=== PATIENT | male | born 2000 | race Caucasian/White ===

== ENCOUNTER 2022-03-15 18:27 | Emergency (ER) | payer OTHER ==
[2022-03-15] MEDS ORDERED: Sulfamethoxazole/Trimethoprim 800-160 MG Tab PO ONE (19:49)
== END 2022-03-15 21:00 | disposition home or self-care (01) ==
LOC: MW.ED 18:27
DX: S30.860A Insect bite (nonvenomous) of lower back and pelvis, initial encounter (principal); L02.31 Cutaneous abscess of buttock; Z79.899 Other long term (current) drug therapy; Z20.822 Contact with and (suspected) exposure to COVID-19; W57.XXXA Bitten or stung by nonvenomous insect and other nonvenomous arthropods, initial encounter
CPT/HCPCS: 87635; 99283; A9270; U0002